=== PATIENT | male | born 1955 | race Asian ===

== ENCOUNTER → 2016-05-27 | Outpatient (CLI) | payer BC ==
[~2016-05-27] MED LIST: CHOL100026 PO; MULT-1146 PO
[2016-05-27 12:32] LABS: BASOPHILS % 0.7 % (0.0-2.0); HEMATOCRIT. 39.6 % (42.0-52.0); HEMOGLOBIN. 13.1 g/dL (14.0-18.0); LYMPHOCYTES % 38.6 % (20.0-50.0); MEAN CORPUSCULAR HEMOGLOBIN 31.5 pg (28.0-32.0); MEAN CORPUSCULAR HGB CONC 33.2 g/dL (31.0-37.0); NEUTROPHILS % 49.7 % (40.0-76.0); PLATELET 207 x1000/uL (130-400); RED BLOOD CELL COUNT 4.17 mill/uL (4.7-6.1); RED CELL DISTRIBUTION WIDTH 14.8 % (11.6-14.6); WHITE BLOOD COUNT 6.4 x1000/uL (4.5-11.0)
[2016-05-27 18:38] LABS: CHLORIDE 107 mEq/L (98-107); INDEX HEMOLYSI 1 (1-3); INDEX ICTERIC 1 (1-4); INDEX LIPEMIC 1 (1-3)
[2016-05-27 18:52] LABS: ALANINE AMINOTRANSFERASE 22 IU/L (13-61); ALBUMIN 3.8 g/dL (3.4-5.0); ANION GAP 12; CARBON DIOXIDE 26 mEq/L (21-32); HDL CHOLESTEROL 53 mg/dL (40-59); LDL CHOLESTEROL 146 mg/dL (5-100); T4 FREE 0.97 ng/dL (0.76-1.46); TRIGLYCERIDE 94 mg/dL (0-150); UREA NITROGEN BLOOD 15 mg/dL (7-21); eGFR > 60 mL/min (>60)
== END | disposition home or self-care (01) ==
LOC: LAB 11:51
PROVIDERS: ATTEND Internal Medicine Endocrinology, Diabetes & Metabolism
DX: R73.9 Hyperglycemia, unspecified (principal); E04.1 Nontoxic single thyroid nodule; E78.00 Pure hypercholesterolemia, unspecified
CPT/HCPCS: 36415; 80053; 80061; 83036; 84439; 84443; 85025

== ENCOUNTER → 2016-09-14 | Outpatient (CLI) | payer BC ==
[~2016-09-14] MED LIST changes: +ASCO-316 PO; -CHOL100026 PO; +CHOL100044 PO; +FISH PO; +VITA1TAB18 PO
[2016-09-14 09:48] LABS: BASOPHILS % 0.5 % (0.0-2.0); EOSINOPHILS % 2.1 % (0.0-5.0); HEMOGLOBIN. 14.9 g/dL (14.0-18.0); MEAN CORPUSCULAR HEMOGLOBIN 32.3 pg (28.0-32.0); MEAN CORPUSCULAR VOLUME 93.3 fL (80.0-94.0); MEAN PLATELET VOLUME 7.5 fl (7.4-10.4); MONOCYTES % 4.9 % (2.0-8.0); NEUTROPHILS % 56.5 % (40.0-76.0); PLATELET 218 x1000/uL (130-400); RED CELL DISTRIBUTION WIDTH 14.5 % (11.6-14.6)
[2016-09-14 10:28] LABS: CARBON DIOXIDE 28 mEq/L (21-32); CHLORIDE 105 mEq/L (98-107); HDL CHOLESTEROL 37 mg/dL (40-59); LDL CHOLESTEROL 134 mg/dL (5-100); T4 FREE 1.08 ng/dL (0.76-1.46)
== END | disposition home or self-care (01) ==
LOC: LAB 09:11
PROVIDERS: ATTEND Internal Medicine Endocrinology, Diabetes & Metabolism
DX: E78.00 Pure hypercholesterolemia, unspecified (principal); D64.9 Anemia, unspecified; E55.9 Vitamin D deficiency, unspecified; R73.9 Hyperglycemia, unspecified
CPT/HCPCS: 36415; 80053; 80061; 82306; 83036; 84439; 84443; 85025

== ENCOUNTER → 2016-10-07 | Outpatient (CLI) | payer BC ==
[~2016-10-07] MED LIST changes: -ASCO-316 PO; +CHOL100026 PO; -CHOL100044 PO; -FISH PO; -VITA1TAB18 PO
[2016-10-07 11:49] LABS: BASOPHILS % 0.7 % (0.0-2.0); EOSINOPHILS % 3.9 % (0.0-5.0); HEMATOCRIT. 39.8 % (42.0-52.0); HEMOGLOBIN. 13.6 g/dL (14.0-18.0); LYMPHOCYTES % 43.7 % (20.0-50.0); MEAN CORPUSCULAR HEMOGLOBIN 32.3 pg (28.0-32.0); MEAN CORPUSCULAR VOLUME 94.7 fL (80.0-94.0); MEAN PLATELET VOLUME 8.1 fl (7.4-10.4); MONOCYTES % 6.7 % (2.0-8.0); PLATELET 175 x1000/uL (130-400); RED CELL DISTRIBUTION WIDTH 14.8 % (11.6-14.6)
[2016-10-07 12:12] LABS: CARBON DIOXIDE 28 mEq/L (21-32); CHLORIDE 108 mEq/L (98-107); HDL CHOLESTEROL 44 mg/dL (40-59); LDL CHOLESTEROL 126 mg/dL (5-100); T4 FREE 1.01 ng/dL (0.76-1.46)
[2016-10-07 12:25] LABS: CLARITY URINE CLEAR (CLEAR); COLOR URINE YELLOW (YELLOW); GLUCOSE URINE NEGATIVE (NEGATIVE); KETONES URINE NEGATIVE (NEGATIVE); LEUKOCYTE ESTERASE URINE NEGATIVE (NEGATIVE); NITRITE URINE NEGATIVE (NEGATIVE); OCCULT BLOOD URINE 1+ (NEGATIVE); PH URINE 6.5 (4.5-8.0); PROTEIN URINE NEGATIVE (NEGATIVE); SPECIFIC GRAVITY URINE 1.024 (1.005-1.030)
[2016-10-07 12:30] LABS: PARTIAL THROMBOPLASTIN TIME 27.5 sec (24.0-34.0); PROTHROMBIN TIME 10.2 sec
== END | disposition home or self-care (01) ==
LOC: LAB 11:28
PROVIDERS: ATTEND Internal Medicine Endocrinology, Diabetes & Metabolism
DX: Z01.811 Encounter for preprocedural respiratory examination (principal); E04.1 Nontoxic single thyroid nodule; E78.00 Pure hypercholesterolemia, unspecified; R73.9 Hyperglycemia, unspecified
CPT/HCPCS: 36415; 71020; 80053; 80061; 81001; 83036; 84439; 84443; 85025; 85610; 85730

== ENCOUNTER 2016-11-11 05:20 | Inpatient (IN) | payer BC ==
[~2016-11-11] VITALS: Ht 175.3 cm; Wt 79.4 kg
[~2016-11-11 05:20] MED LIST changes: -CHOL100026 PO; +CHOL100044 PO
[2016-11-11 06:25] LABS: BASOPHILS % 0.5 % (0.0-2.0); EOSINOPHILS % 4.3 % (0.0-5.0); HEMATOCRIT. 38.6 % (42.0-52.0); HEMOGLOBIN. 13.1 g/dL (14.0-18.0); MEAN CORPUSCULAR HEMOGLOBIN 33.1 pg (28.0-32.0); MEAN CORPUSCULAR VOLUME 97.5 fL (80.0-94.0); MEAN PLATELET VOLUME 8.3 fl (7.4-10.4); MONOCYTES % 7.7 % (2.0-8.0); NEUTROPHILS % 47.5 % (40.0-76.0); PLATELET 156 x1000/uL (130-400); RED BLOOD CELL COUNT 3.96 mill/uL (4.7-6.1); RED CELL DISTRIBUTION WIDTH 14.7 % (11.6-14.6)
[2016-11-11 06:25] LABS: CLARITY URINE CLEAR (CLEAR); COLOR URINE YELLOW (YELLOW); GLUCOSE URINE NEGATIVE (NEGATIVE); KETONES URINE TRACE (NEGATIVE); LEUKOCYTE ESTERASE URINE NEGATIVE (NEGATIVE); NITRITE URINE NEGATIVE (NEGATIVE); OCCULT BLOOD URINE 1+ (NEGATIVE); PROTEIN URINE NEGATIVE (NEGATIVE); SPECIFIC GRAVITY URINE 1.023 (1.005-1.030)
[2016-11-11 06:32] LABS: PARTIAL THROMBOPLASTIN TIME 26.6 sec (23.4-31.0); PROTHROMBIN TIME 10.2 sec (9.4-11.6)
[2016-11-11] MEDS ORDERED: LACTATED RINGERS 1,000 ML IV SCH (06:40)
[2016-11-11 06:46] LABS: CARBON DIOXIDE 30 mEq/L (21-32); CHLORIDE 108 mEq/L (98-107)
[2016-11-11] MEDS ORDERED: TRANEXAMIC ACID 1,000 MG in SODIUM CHLORIDE 0.9% 100 ML IV NR (07:00)
[2016-11-11] MEDS ORDERED: METHYLENE BLUE 50 MG/10 ML AMP IV NR (07:01)
[2016-11-11] MEDS ORDERED: EPINEPHRINE 1:1000 1 MG/ML AMP ONE (07:07)
[2016-11-11] MEDS ORDERED: MORPHINE SULFATE/PF 1MG/ML 10ML AMP ONE (07:07)
[2016-11-11] MEDS ORDERED: BUPIVACAINE/EPINEPH/PF 0.25%/0.0005 10ML ONE (07:08)
[2016-11-11] MEDS ORDERED: NORMAL SALINE 0.9% 10 ML SYR ONE (07:08)
[2016-11-11] MEDS ORDERED: BACITRACIN 50,000 UNITS/VIAL ONE (07:08)
[2016-11-11] MEDS ORDERED: METHYLENE BLUE 1% VIAL 1ML INJ ONE (07:15)
[2016-11-11] MEDS ORDERED: GENTAMICIN SULF 40MG/ML 2ML VIAL ONE (07:46)
[2016-11-11] MEDS ORDERED: DEXAMETHASONE 4MG/ML 1ML VIAL ONE ×2 (07:54→10:37)
[2016-11-11] MEDS ORDERED: CEFAZOLIN SODIUM 1000MG/VIAL ONE ×2 (07:54→10:36)
[2016-11-11] MEDS ORDERED: MEPERIDINE HCL/PF 25MG/ML CPJ IV PRN (09:30)
[2016-11-11] MEDS ORDERED: LABETALOL HCL 20MG/4ML CARPUJECT IV PRN (09:30)
[2016-11-11] MEDS ORDERED: ONDANSETRON HCL 4MG/2ML VIAL IV PRN ×2 (09:30→11:00)
[2016-11-11] MEDS ORDERED: ASCO-316 PO (10:07)
[2016-11-11] MEDS ORDERED: VITA1TAB18 PO (10:07)
[2016-11-11] MEDS ORDERED: FISH PO (10:07)
[2016-11-11] MEDS ORDERED: LABETALOL HCL 5MG/ML VIAL 20ML IV ONE (10:36)
[2016-11-11] MEDS ORDERED: HYDROCODONE/ACETAMINOPHEN 10/325MG TABLET PO PRN (11:00)
[2016-11-11] MEDS ORDERED: TRAMADOL 50MG TABLET PO ONE (11:00)
[2016-11-11] MEDS ORDERED: ACETAMINOPHEN 325MG TABLET PO PRN (11:00)
[2016-11-11] MEDS ORDERED: MAGNESIUM HYDROXIDE 400MG/5ML 30ML UDC PO PRN (11:00)
[2016-11-11] MEDS ORDERED: TRAMADOL 50MG TABLET PO PRN (11:00)
[2016-11-11] MEDS: HYDROMORPHONE HCL/PF 2MG/ML CPJ IV PRN ×3 (11:29→14:11)
[2016-11-11] MEDS ORDERED: HYDROMORPHONE PCA 10MG/50ML IV PRN (11:30)
[2016-11-11] MEDS ORDERED: ONDANSETRON INJ IV PRN (11:30)
[2016-11-11] MEDS ORDERED: NALOXONE INJ IV PRN (11:30)
[2016-11-11] MEDS ORDERED: DIPHENHYDRAMINE INJ IV PRN (11:30)
[2016-11-11 18:00] VITALS: BP 107/72
[2016-11-11 18:06] VITALS: BP 107/72
[2016-11-11] MEDS: DOCUSATE SODIUM 100MG CAPSULE PO SCH (18:39)
[2016-11-11] MEDS: CELECOXIB 200MG CAPSULE PO SCH (18:39)
[2016-11-11] MEDS: FERROUS SULFATE 325MG TABLET PO SCH (18:39)
[2016-11-11 20:00] VITALS: BP 105/60
[2016-11-11] MEDS ORDERED: ZOLPIDEM TARTRATE 5MG TABLET PO PRN (21:00)
[2016-11-11] MEDS: CEFAZOLIN 2,000 MG in DEXT 5% WATER 100 ML IV SCH (22:14)
[2016-11-11] MEDS: ENOXAPARIN 40MG/0.4ML SYR SUBCUT SCH (22:14)
[2016-11-12] VITALS: BP 122/66
[2016-11-12 04:00] VITALS: BP 101/56
[2016-11-12] MEDS: CEFAZOLIN 2,000 MG in DEXT 5% WATER 100 ML IV SCH (04:45)
[2016-11-12 07:06] LABS: BASOPHILS % 0.2 % (0.0-2.0); EOSINOPHILS % 0.1 % (0.0-5.0); HEMOGLOBIN. 10.9 g/dL (14.0-18.0); LYMPHOCYTES % 23.8 % (20.0-50.0); MEAN CORPUSCULAR HEMOGLOBIN 33.3 pg (28.0-32.0); MEAN CORPUSCULAR VOLUME 98.3 fL (80.0-94.0); MEAN PLATELET VOLUME 8.8 fl (7.4-10.4); MONOCYTES % 11.1 % (2.0-8.0); NEUTROPHILS % 64.8 % (40.0-76.0); PLATELET 147 x1000/uL (130-400); RED BLOOD CELL COUNT 3.26 mill/uL (4.7-6.1); RED CELL DISTRIBUTION WIDTH 14.8 % (11.6-14.6)
[2016-11-12 07:42] LABS: CARBON DIOXIDE 30 mEq/L (21-32); CHLORIDE 105 mEq/L (98-107)
[2016-11-12 08:00] VITALS: BP 110/67
[2016-11-12] MEDS: DOCUSATE SODIUM 100MG CAPSULE PO SCH ×2 (09:50→17:34)
[2016-11-12] MEDS: FERROUS SULFATE 325MG TABLET PO SCH ×3 (09:50→17:34)
[2016-11-12] MEDS: CELECOXIB 200MG CAPSULE PO SCH ×2 (09:50→17:34)
[2016-11-12 12:00] VITALS: BP 113/74
[2016-11-12 16:00] VITALS: BP 108/66
[2016-11-12 20:00] VITALS: BP 96/45
[2016-11-12] MEDS: ENOXAPARIN 40MG/0.4ML SYR SUBCUT SCH (21:26)
[2016-11-12] MEDS: HYDROCODONE/ACETAMINOPHEN 10/325MG TABLET PO PRN (21:41)
[2016-11-13] VITALS: BP 121/62
[2016-11-13] MEDS: HYDROCODONE/ACETAMINOPHEN 10/325MG TABLET PO PRN ×2 (02:36→08:38)
[2016-11-13 04:00] VITALS: BP 116/56
[2016-11-13 07:02] LABS: BASOPHILS % 0.4 % (0.0-2.0); EOSINOPHILS % 2.3 % (0.0-5.0); HEMATOCRIT. 30.3 % (42.0-52.0); HEMOGLOBIN. 10.4 g/dL (14.0-18.0); MEAN CORPUSCULAR HEMOGLOBIN 33.5 pg (28.0-32.0); MEAN CORPUSCULAR VOLUME 97.8 fL (80.0-94.0); MONOCYTES % 11.4 % (2.0-8.0); NEUTROPHILS % 62.9 % (40.0-76.0); PLATELET 129 x1000/uL (130-400); RED CELL DISTRIBUTION WIDTH 14.3 % (11.6-14.6)
[2016-11-13 08:00] VITALS: BP 105/66
[2016-11-13] MEDS: CELECOXIB 200MG CAPSULE PO SCH (08:39)
[2016-11-13] MEDS: FERROUS SULFATE 325MG TABLET PO SCH (08:39)
[2016-11-13] MEDS: DOCUSATE SODIUM 100MG CAPSULE PO SCH (08:39)
[2016-11-13 12:00] VITALS: BP 103/71
[2016-11-13 13:00] VITALS: BP 103/71
== END 2016-11-13 13:15 | disposition home or self-care (01) | DRG 470 ==
LOC: OR 05:20 → 6EST 05:21
PROVIDERS: ADMIT Orthopaedic Surgery; ATTEND Orthopaedic Surgery
PROC: 0SRD0J9 Replacement of Left Knee Joint with Synthetic Substitute, Cemented, Open Approach (ICD-10-PCS; principal; 2016-11-11 07:30)
DX: M17.12 Unilateral primary osteoarthritis, left knee (principal); E04.2 Nontoxic multinodular goiter; E78.5 Hyperlipidemia, unspecified; E78.00 Pure hypercholesterolemia, unspecified; Z96.651 Presence of right artificial knee joint; R73.9 Hyperglycemia, unspecified; Z80.9 Family history of malignant neoplasm, unspecified
CPT/HCPCS: 36415; 73560; 80048; 81001; 85025; 85610; 85730; 86850; 86900; 86920; 88305; 88311; 93970; 97116; 97162; 97166; 97530; 97535; A4216; C1776; J0171; J0690; J1100; J1170; J1580; J1650; J2175; J2274; J2405; J3490; J7040; J7050; J7060; J7120; L1830; Q9968

== ENCOUNTER → 2016-12-20 | Outpatient (CLI) | payer BC ==
[~2016-12-20] MED LIST changes: +ASCO-316 PO; +FISH PO; +VITA1TAB18 PO
[2016-12-20 10:17] LABS: BASOPHILS % 0.5 % (0.0-2.0); HEMATOCRIT. 36.3 % (42.0-52.0); HEMOGLOBIN. 12.1 g/dL (14.0-18.0); LYMPHOCYTES % 28.6 % (20.0-50.0); MEAN CORPUSCULAR HEMOGLOBIN 31.5 pg (28.0-32.0); MEAN CORPUSCULAR VOLUME 94.9 fL (80.0-94.0); MEAN PLATELET VOLUME 7.4 fl (7.4-10.4); MONOCYTES % 5.3 % (2.0-8.0); NEUTROPHILS % 63.6 % (40.0-76.0); PLATELET 219 x1000/uL (130-400); RED BLOOD CELL COUNT 3.83 mill/uL (4.7-6.1); RED CELL DISTRIBUTION WIDTH 14.9 % (11.6-14.6)
[2016-12-20 10:57] LABS: CARBON DIOXIDE 29 mEq/L (21-32); CHLORIDE 108 mEq/L (98-107); HDL CHOLESTEROL 52 mg/dL (40-59); LDL CHOLESTEROL 118 mg/dL (5-100)
== END | disposition home or self-care (01) ==
LOC: LAB 09:49
PROVIDERS: ATTEND Internal Medicine Endocrinology, Diabetes & Metabolism
DX: E78.00 Pure hypercholesterolemia, unspecified (principal); R73.9 Hyperglycemia, unspecified; E04.1 Nontoxic single thyroid nodule
CPT/HCPCS: 36415; 80053; 80061; 83036; 84439; 84443; 85025

== ENCOUNTER → 2017-04-08 | Outpatient (CLI) | payer BC ==
[2017-04-08 10:43] LABS: BASOPHILS % 0.7 % (0.0-2.0); EOSINOPHILS % 2.8 % (0.0-5.0); HEMATOCRIT. 41.3 % (42.0-52.0); HEMOGLOBIN. 14.1 g/dL (14.0-18.0); LYMPHOCYTES % 40.1 % (20.0-50.0); MEAN CORPUSCULAR HEMOGLOBIN 32.2 pg (28.0-32.0); MEAN CORPUSCULAR VOLUME 94.6 fL (80.0-94.0); MEAN PLATELET VOLUME 8.1 fl (7.4-10.4); MONOCYTES % 6.8 % (2.0-8.0); NEUTROPHILS % 49.6 % (40.0-76.0); PLATELET 206 x1000/uL (130-400); RED BLOOD CELL COUNT 4.37 mill/uL (4.7-6.1); RED CELL DISTRIBUTION WIDTH 15.6 % (11.6-14.6)
[2017-04-08 11:38] LABS: CHLORIDE 108 mEq/L (98-107); T4 FREE 0.92 ng/dL (0.76-1.46)
[2017-04-08 11:46] LABS: HDL CHOLESTEROL 62 mg/dL (40-59); LDL CHOLESTEROL 120 mg/dL (5-100)
== END | disposition home or self-care (01) ==
LOC: LAB 10:16
PROVIDERS: ATTEND Internal Medicine Endocrinology, Diabetes & Metabolism
DX: E04.1 Nontoxic single thyroid nodule (principal); E78.00 Pure hypercholesterolemia, unspecified; R73.9 Hyperglycemia, unspecified
CPT/HCPCS: 36415; 80061; 83036; 84439; 84443

== ENCOUNTER → 2017-07-02 | Outpatient (CLI) | payer BC ==
[2017-07-02 11:29] LABS: BASOPHILS % 0.5 % (0.0-2.0); EOSINOPHILS % 3.4 % (0.0-5.0); HEMATOCRIT. 43.1 % (42.0-52.0); MEAN CORPUSCULAR HEMOGLOBIN 33.9 pg (28.0-32.0); MEAN CORPUSCULAR VOLUME 97.1 fL (80.0-94.0); MEAN PLATELET VOLUME 7.8 fl (7.4-10.4); MONOCYTES % 4.6 % (2.0-8.0); NEUTROPHILS % 51.5 % (40.0-76.0); PLATELET 196 x1000/uL (130-400); RED BLOOD CELL COUNT 4.44 mill/uL (4.7-6.1); RED CELL DISTRIBUTION WIDTH 13.2 % (11.6-14.6)
[2017-07-02 12:05] LABS: CHLORIDE 107 mEq/L (98-107)
[2017-07-02 12:13] LABS: HDL CHOLESTEROL 58 mg/dL (40-59)
[2017-07-02 12:14] LABS: LDL CHOLESTEROL 125 mg/dL (5-100)
[2017-07-02 12:16] LABS: T4 FREE 0.89 ng/dL (0.76-1.46)
== END | disposition home or self-care (01) ==
LOC: LAB 11:08
PROVIDERS: ATTEND Internal Medicine Endocrinology, Diabetes & Metabolism
DX: Z12.5 Encounter for screening for malignant neoplasm of prostate (principal); I10 Essential (primary) hypertension; E78.5 Hyperlipidemia, unspecified; E04.1 Nontoxic single thyroid nodule; R79.89 Other specified abnormal findings of blood chemistry
CPT/HCPCS: 36415; 80053; 80061; 83036; 84153; 84439; 84443; 85025

== ENCOUNTER → 2017-10-05 | Outpatient (CLI) | payer BC ==
[2017-10-05 09:26] LABS: BASOPHILS % 0.9 % (0.0-2.0); EOSINOPHILS % 3.6 % (0.0-5.0); HEMATOCRIT. 41.8 % (42.0-52.0); HEMOGLOBIN. 14.3 g/dL (14.0-18.0); LYMPHOCYTES % 41.7 % (20.0-50.0); MEAN CORPUSCULAR HEMOGLOBIN 33.5 pg (28.0-32.0); MEAN CORPUSCULAR VOLUME 97.9 fL (80.0-94.0); MEAN PLATELET VOLUME 8.3 fl (7.4-10.4); MONOCYTES % 5.9 % (2.0-8.0); NEUTROPHILS % 47.9 % (40.0-76.0); PLATELET 177 x1000/uL (130-400); RED BLOOD CELL COUNT 4.27 mill/uL (4.7-6.1); RED CELL DISTRIBUTION WIDTH 13.8 % (11.6-14.6)
[2017-10-05 09:51] LABS: CHLORIDE 108 mEq/L (98-107)
[2017-10-05 09:58] LABS: LDL CHOLESTEROL 119 mg/dL (5-100)
[2017-10-05 10:00] LABS: T4 FREE 0.98 ng/dL (0.76-1.46)
[2017-10-05 10:03] LABS: HDL CHOLESTEROL 56 mg/dL (40-59)
[2017-10-06 13:07] LABS: VITAMIN D 25-OH 38.6 ng/mL (30.0-100.0)
== END | disposition home or self-care (01) ==
LOC: LAB 08:52
PROVIDERS: ATTEND Internal Medicine Endocrinology, Diabetes & Metabolism
DX: I10 Essential (primary) hypertension (principal); E78.5 Hyperlipidemia, unspecified; R73.9 Hyperglycemia, unspecified; E04.1 Nontoxic single thyroid nodule; E78.00 Pure hypercholesterolemia, unspecified; Z79.899 Other long term (current) drug therapy
CPT/HCPCS: 36415; 80053; 80061; 82306; 83036; 84439; 84443; 85025; 86800

== ENCOUNTER → 2018-01-04 | Outpatient (CLI) | payer BC ==
[2018-01-04 13:03] LABS: BASOPHILS % 0.6 % (0.0-2.0); HEMATOCRIT. 43.3 % (42.0-52.0); HEMOGLOBIN. 14.8 g/dL (14.0-18.0); LYMPHOCYTES % 30.6 % (20.0-50.0); MEAN CORPUSCULAR HEMOGLOBIN 33.7 pg (28.0-32.0); MEAN CORPUSCULAR VOLUME 98.5 fL (80.0-94.0); MEAN PLATELET VOLUME 8.2 fl (7.4-10.4); MONOCYTES % 5.3 % (2.0-8.0); NEUTROPHILS % 62.5 % (40.0-76.0); PLATELET 192 x1000/uL (130-400); RED BLOOD CELL COUNT 4.39 mill/uL (4.7-6.1); RED CELL DISTRIBUTION WIDTH 13.3 % (11.6-14.6)
[2018-01-04 13:04] LABS: CHLORIDE 106 mEq/L (98-107)
[2018-01-04 13:20] LABS: HDL CHOLESTEROL 63 mg/dL (40-59); LDL CHOLESTEROL 138 mg/dL (5-100); T4 FREE 1.01 ng/dL (0.76-1.46)
[2018-01-05 09:06] LABS: VITAMIN D 25-OH 37.2 ng/mL (30.0-100.0)
== END | disposition home or self-care (01) ==
LOC: LAB 11:41
PROVIDERS: ATTEND Internal Medicine Endocrinology, Diabetes & Metabolism
DX: I10 Essential (primary) hypertension (principal); E78.5 Hyperlipidemia, unspecified; E55.9 Vitamin D deficiency, unspecified; E04.1 Nontoxic single thyroid nodule
CPT/HCPCS: 36415; 80061; 82306; 83036; 84439; 84443; 86800

== ENCOUNTER → 2018-02-17 | Outpatient (CLI) | payer BC | END | disposition home or self-care (01) | LOC: RAD 14:17 | PROVIDERS: ATTEND Podiatrist Foot & Ankle Surgery | DX: M20.11 Hallux valgus (acquired), right foot (principal) | CPT/HCPCS: 73630 ==

== ENCOUNTER → 2018-03-24 | Outpatient (CLI) | payer BC ==
[2018-03-24 11:40] LABS: BASOPHILS % 0.8 % (0.0-2.0); EOSINOPHILS % 1.8 % (0.0-5.0); HEMATOCRIT. 44.3 % (42.0-52.0); LYMPHOCYTES % 34.4 % (20.0-50.0); MEAN CORPUSCULAR VOLUME 97.5 fL (80.0-94.0); MONOCYTES % 4.5 % (2.0-8.0); NEUTROPHILS % 58.5 % (40.0-76.0); PLATELET 175 x1000/uL (130-400); RED BLOOD CELL COUNT 4.54 mill/uL (4.7-6.1); RED CELL DISTRIBUTION WIDTH 12.8 % (11.6-14.6)
[2018-03-24 11:53] LABS: CHLORIDE 108 mEq/L (98-107)
[2018-03-24 12:00] LABS: LDL CHOLESTEROL 132 mg/dL (5-100)
[2018-03-24 12:01] LABS: HDL CHOLESTEROL 59 mg/dL (40-59); T4 FREE 0.96 ng/dL (0.76-1.46)
[2018-03-24 12:45] LABS: VITAMIN B12 SERUM 393 pg/mL (211-911)
[2018-03-25 09:06] LABS: VITAMIN D 25-OH 31.7 ng/mL (30.0-100.0)
[2018-03-26 04:17] LABS: ANTI-NUCLEAR ANTIBODIES DIRECT Negative (Negative)
== END | disposition home or self-care (01) ==
LOC: LAB 11:13
PROVIDERS: ATTEND Internal Medicine Endocrinology, Diabetes & Metabolism
DX: I10 Essential (primary) hypertension (principal); E04.1 Nontoxic single thyroid nodule; M19.90 Unspecified osteoarthritis, unspecified site; E55.9 Vitamin D deficiency, unspecified
CPT/HCPCS: 36415; 80061; 82306; 82607; 83036; 84439; 84443; 84550; 85651; 86038; 86800

== ENCOUNTER 2018-06-02 11:12 | Inpatient (IN) | payer BC ==
[~2018-06-02] VITALS: Ht 175.3 cm; Wt 72.6 kg
[2018-06-02 12:14] LABS: CLARITY URINE SL HAZY (CLEAR); COLOR URINE YELLOW (YELLOW); KETONES URINE TRACE (NEGATIVE); LEUKOCYTE ESTERASE URINE NEGATIVE (NEGATIVE); NITRITE URINE NEGATIVE (NEGATIVE); OCCULT BLOOD URINE TRACE (NEGATIVE); PROTEIN URINE NEGATIVE (NEGATIVE); SPECIFIC GRAVITY URINE 1.013 (1.005-1.030)
[2018-06-02] MEDS ORDERED: SODIUM CHLORIDE 0.9% 1,000 ML IV ONE (16:39)
[2018-06-02] MEDS ORDERED: FAMOTIDINE 20MG/2ML VIAL IV STA (16:39)
[2018-06-02] MEDS ORDERED: MAGNESIUM/ALUMINUM HYDROXIDE/SIMETHICONE 30ML UDC PO STA (16:39)
[2018-06-02 16:56] LABS: BASOPHILS % 0.5 % (0.0-2.0); EOSINOPHILS % 0.7 % (0.0-5.0); HEMATOCRIT. 46.6 % (42.0-52.0); LYMPHOCYTES % 31.9 % (20.0-50.0); MEAN CORPUSCULAR HEMOGLOBIN 33.6 pg (28.0-32.0); MEAN PLATELET VOLUME 8.2 fl (7.4-10.4); MONOCYTES % 5.9 % (2.0-8.0); PLATELET 209 x1000/uL (130-400); RED BLOOD CELL COUNT 4.75 mill/uL (4.7-6.1); RED CELL DISTRIBUTION WIDTH 13.5 % (11.6-14.6)
[2018-06-02 17:01] LABS: CHLORIDE 102 mEq/L (98-107)
[2018-06-02 17:05] LABS: PROTHROMBIN TIME 10.4 sec (9.1-11.1)
[2018-06-02] MEDS ORDERED: ASPIRIN 81MG TABLET PO ONE (19:00)
[2018-06-02] MEDS ORDERED: HYDROMORPHONE HCL/PF 2MG/ML CPJ IV PRN (22:15)
[2018-06-02] MEDS ORDERED: ACETAMINOPHEN 650MG/20.3ML UDC PO PRN (22:15)
[2018-06-03 04:00] VITALS: BP 123/78
[2018-06-03 04:08] VITALS: BP 123/78
[2018-06-03] MEDS: FAMOTIDINE 20MG/2ML VIAL IV SCH ×2 (07:58→21:05)
[2018-06-03] MEDS: ASPIRIN 325MG EC TABLET PO SCH (07:59)
[2018-06-03 08:00] VITALS: BP 139/87
[2018-06-03 11:11] LABS: HEMATOCRIT. 44.7 % (42.0-52.0); HEMOGLOBIN. 15.2 g/dL (14.0-18.0); MEAN CORPUSCULAR HEMOGLOBIN 33.2 pg (28.0-32.0); MEAN CORPUSCULAR VOLUME 97.5 fL (80.0-94.0); PLATELET 202 x1000/uL (130-400); RED BLOOD CELL COUNT 4.58 mill/uL (4.7-6.1); RED CELL DISTRIBUTION WIDTH 13.5 % (11.6-14.6)
[2018-06-03 11:19] LABS: CHLORIDE 103 mEq/L (98-107)
[2018-06-03 12:00] VITALS: BP 133/81
[2018-06-03] MEDS ORDERED: POTASSIUM CHLORIDE 20MEQ TABLET SR PO NR (12:30)
[2018-06-03 13:00] LABS: PLATELET ESTIMATE NORMAL
[2018-06-03] MEDS ORDERED: REGADENOSON 0.4 MG/5 ML IV NR (15:15)
[2018-06-03] MEDS ORDERED: CLONIDINE 0.1MG TABLET PO PRN (15:15)
[2018-06-03] MEDS ORDERED: POTASSIUM CHLORIDE 20MEQ/PACKET PO NR (15:15)
[2018-06-03 16:00] VITALS: BP 130/86
[2018-06-03 20:00] VITALS: BP 107/73
[2018-06-04] VITALS: BP 128/77
[2018-06-04 01:47] LABS: *AMPHETAMINES SCREEN URINE NEGATIVE (NEGATIVE); *BARBITURATES SCREEN URINE NEGATIVE (NEGATIVE); *BENZODIAZEPINES SCREEN URINE NEGATIVE (NEGATIVE); *COCAINE SCREEN URINE NEGATIVE (NEGATIVE); METHADONE URINE SCREEN NEGATIVE (NEGATIVE); OPIATES URINE SCREEN NEGATIVE (NEGATIVE)
[2018-06-04 01:49] LABS: CANNABINOID URINE SCREEN NEGATIVE (NEGATIVE); PHENCYCLIDINE URINE SCREEN NEGATIVE (NEGATIVE)
[2018-06-04 04:00] VITALS: BP 118/67
[2018-06-04 06:49] LABS: BASOPHILS % 0.8 % (0.0-2.0); EOSINOPHILS % 1.9 % (0.0-5.0); HEMATOCRIT. 42.5 % (42.0-52.0); HEMOGLOBIN. 14.5 g/dL (14.0-18.0); MEAN CORPUSCULAR HEMOGLOBIN 33.2 pg (28.0-32.0); MEAN CORPUSCULAR VOLUME 97.1 fL (80.0-94.0); MEAN PLATELET VOLUME 8.5 fl (7.4-10.4); NEUTROPHILS % 62.3 % (40.0-76.0); PLATELET 193 x1000/uL (130-400); RED BLOOD CELL COUNT 4.38 mill/uL (4.7-6.1); RED CELL DISTRIBUTION WIDTH 13.3 % (11.6-14.6)
[2018-06-04 06:56] LABS: CHLORIDE 106 mEq/L (98-107)
[2018-06-04 07:21] LABS: CREATINE KINASE MB FRACTION < 1.0 ng/mL (0.5-3.6); LDL CHOLESTEROL 130 mg/dL (5-100)
[2018-06-04 07:22] LABS: C REACTIVE PROTEIN CARDIAC < 0.20 mg/L (0.00-3.00); HDL CHOLESTEROL 52 mg/dL (40-59)
[2018-06-04 07:25] LABS: CREATINE KINASE 42 IU/L (39-308)
[2018-06-04 07:33] LABS: VITAMIN B12 SERUM 468 pg/mL (211-911)
[2018-06-04 08:00] VITALS: BP 107/77
[2018-06-04] MEDS: ASPIRIN 325MG EC TABLET PO SCH (08:23)
[2018-06-04] MEDS: FAMOTIDINE 20MG/2ML VIAL IV SCH (08:23)
[2018-06-04] MEDS ORDERED: REGADENOSON 0.4 MG/5 ML IV ONE (09:12)
[2018-06-04 12:00] VITALS: BP 125/82
[2018-06-04 15:10] VITALS: BP 125/82
[2018-06-07 15:06] LABS: A/G RATIO 1.4 (0.7-1.7); ALBUMIN 3.8 g/dL (2.9-4.4); ALPHA-1-GLOBULIN 0.1 g/dL (0.0-0.4); ALPHA-2-GLOBULIN 0.4 g/dL (0.4-1.0); GAMMA GLOBULINS 1.2 g/dL (0.4-1.8); GLOBULIN TOTAL 2.8 g/dL (2.2-3.9); M-SPIKE Not Observed g/dL (Not Observed); TOTAL PROTEIN SERUM 6.6 g/dL (6.0-8.5)
== END 2018-06-04 15:50 | disposition home or self-care (01) | DRG 392 ==
LOC: ER 11:12 → 8WST 18:58 → EDBEDREQ 19:01 → ENRESERV 06-03 03:07
PROVIDERS: ADMIT Internal Medicine Endocrinology, Diabetes & Metabolism; ATTEND Internal Medicine Endocrinology, Diabetes & Metabolism
DX: K52.9 Noninfective gastroenteritis and colitis, unspecified (principal); I42.9 Cardiomyopathy, unspecified; D72.821 Monocytosis (symptomatic); D75.89 Other specified diseases of blood and blood-forming organs; E04.2 Nontoxic multinodular goiter; E78.00 Pure hypercholesterolemia, unspecified; E87.6 Hypokalemia; R73.9 Hyperglycemia, unspecified; R00.1 Bradycardia, unspecified; I10 Essential (primary) hypertension; M17.0 Bilateral primary osteoarthritis of knee; Z96.653 Presence of artificial knee joint, bilateral; R31.29 Other microscopic hematuria; Z80.0 Family history of malignant neoplasm of digestive organs; Z79.899 Other long term (current) drug therapy; Z84.1 Family history of disorders of kidney and ureter
CPT/HCPCS: 36415; 74176; 78452; 80048; 80061; 80305; 82550; 82553; 82607; 83036; 83735; 83880; 84155; 84165; 84443; 84484; 85007; 85027; 85379; 85651; 86141; 93005; 93017; 93306; 96361; 96374; 99285; A9500; J2785; J3490; J7030

== ENCOUNTER → 2018-07-27 | Outpatient (CLI) | payer BC | END | disposition home or self-care (01) | LOC: CARD 08:03 | PROVIDERS: ATTEND Specialist | DX: I42.9 Cardiomyopathy, unspecified (principal) | CPT/HCPCS: 93306 ==

== ENCOUNTER → 2018-10-14 | Outpatient (CLI) | payer BC ==
[2018-10-14 09:55] LABS: BASOPHILS % 0.7 % (0.0-2.0); EOSINOPHILS % 1.7 % (0.0-5.0); HEMOGLOBIN. 13.8 g/dL (14.0-18.0); LYMPHOCYTES % 45.8 % (20.0-50.0); MEAN CORPUSCULAR HEMOGLOBIN 33.5 pg (28.0-32.0); MEAN CORPUSCULAR VOLUME 97.1 fL (80.0-94.0); MONOCYTES % 5.7 % (2.0-8.0); NEUTROPHILS % 46.1 % (40.0-76.0); PLATELET 157 x1000/uL (130-400); RED BLOOD CELL COUNT 4.12 mill/uL (4.7-6.1)
[2018-10-14 10:02] LABS: CHLORIDE 110 mEq/L (98-107)
[2018-10-14 10:09] LABS: LDL CHOLESTEROL 138 mg/dL (5-100)
[2018-10-14 10:10] LABS: HDL CHOLESTEROL 60 mg/dL (40-59)
[2018-10-14 10:11] LABS: T4 FREE 0.93 ng/dL (0.76-1.46)
[2018-10-14 10:37] LABS: VITAMIN B12 SERUM 423 pg/mL (211-911)
[2018-10-15 09:15] LABS: VITAMIN D 25-OH 29.9 ng/mL (30.0-100.0)
[2018-10-15 13:12] LABS: ANTI-NUCLEAR ANTIBODIES DIRECT Negative (Negative)
== END | disposition home or self-care (01) ==
LOC: LAB 09:22
PROVIDERS: ATTEND Internal Medicine Endocrinology, Diabetes & Metabolism
DX: E04.1 Nontoxic single thyroid nodule (principal); I10 Essential (primary) hypertension; E55.9 Vitamin D deficiency, unspecified; M19.90 Unspecified osteoarthritis, unspecified site
CPT/HCPCS: 36415; 80061; 82306; 82607; 83036; 84439; 84443; 84550; 85651; 86038; 86800

== ENCOUNTER → 2018-11-03 | Outpatient (CLI) | payer BC | END | disposition home or self-care (01) | LOC: CARD 10:21 | PROVIDERS: ATTEND Specialist | DX: I11.9 Hypertensive heart disease without heart failure (principal) | CPT/HCPCS: 93306 ==

== ENCOUNTER → 2019-02-07 | Outpatient (CLI) | payer BC ==
[2019-02-07 11:44] LABS: BASOPHILS % 0.6 % (0.0-2.0); EOSINOPHILS % 2.7 % (0.0-5.0); HEMOGLOBIN. 14.3 g/dL (14.0-18.0); LYMPHOCYTES % 41.3 % (20.0-50.0); MEAN CORPUSCULAR HEMOGLOBIN 33.6 pg (28.0-32.0); MEAN CORPUSCULAR VOLUME 98.5 fL (80.0-94.0); MEAN PLATELET VOLUME 8.3 fl (7.4-10.4); MONOCYTES % 6.3 % (2.0-8.0); NEUTROPHILS % 49.1 % (40.0-76.0); PLATELET 176 x1000/uL (130-400); RED BLOOD CELL COUNT 4.26 mill/uL (4.7-6.1); RED CELL DISTRIBUTION WIDTH 13.2 % (11.6-14.6)
[2019-02-07 11:55] LABS: CHLORIDE 109 mEq/L (98-107)
[2019-02-07 12:03] LABS: LDL CHOLESTEROL 101 mg/dL (5-100)
[2019-02-07 12:05] LABS: HDL CHOLESTEROL 66 mg/dL (40-59); T4 FREE 1.12 ng/dL (0.76-1.46)
[2019-02-08 09:06] LABS: VITAMIN D 25-OH 24.4 ng/mL (30.0-100.0)
== END | disposition home or self-care (01) ==
LOC: LAB 11:15
PROVIDERS: ATTEND Internal Medicine Endocrinology, Diabetes & Metabolism
DX: E04.1 Nontoxic single thyroid nodule (principal); M19.90 Unspecified osteoarthritis, unspecified site; E78.5 Hyperlipidemia, unspecified
CPT/HCPCS: 36415; 80061; 82306; 83036; 84439; 84443; 84550; 86800

== ENCOUNTER → 2019-04-04 | Outpatient (CLI) | payer BC ==
[2019-04-04 11:31] LABS: CHLORIDE 110 mEq/L (98-107)
[2019-04-04 11:45] LABS: LDL CHOLESTEROL 64 mg/dL (5-100)
[2019-04-04 11:46] LABS: HDL CHOLESTEROL 61 mg/dL (40-59)
== END | disposition home or self-care (01) ==
LOC: LAB 10:55
PROVIDERS: ATTEND Specialist
DX: I11.9 Hypertensive heart disease without heart failure (principal); I42.9 Cardiomyopathy, unspecified; E78.2 Mixed hyperlipidemia; R94.31 Abnormal electrocardiogram [ECG] [EKG]
CPT/HCPCS: 36415; 80053; 80061

== ENCOUNTER → 2019-05-10 | Outpatient (CLI) | payer BC ==
[2019-05-10 12:57] LABS: BASOPHILS % 0.5 % (0.0-2.0); EOSINOPHILS % 0.8 % (0.0-5.0); HEMATOCRIT. 44.8 % (42.0-52.0); HEMOGLOBIN. 15.4 g/dL (14.0-18.0); LYMPHOCYTES % 25.6 % (20.0-50.0); MEAN CORPUSCULAR HEMOGLOBIN 33.4 pg (28.0-32.0); MEAN CORPUSCULAR VOLUME 97.1 fL (80.0-94.0); MEAN PLATELET VOLUME 8.5 fl (7.4-10.4); MONOCYTES % 6.4 % (2.0-8.0); NEUTROPHILS % 66.7 % (40.0-76.0); PLATELET 188 x1000/uL (130-400); RED BLOOD CELL COUNT 4.61 mill/uL (4.7-6.1); RED CELL DISTRIBUTION WIDTH 13.2 % (11.6-14.6)
[2019-05-10 13:31] LABS: CHLORIDE 104 mEq/L (98-107)
[2019-05-10 13:38] LABS: LDL CHOLESTEROL 141 mg/dL (5-100)
[2019-05-10 13:39] LABS: HDL CHOLESTEROL 67 mg/dL (40-59)
[2019-05-10 13:40] LABS: T4 FREE 1.31 ng/dL (0.76-1.46)
[2019-05-10 14:28] LABS: VITAMIN B12 SERUM 401 pg/mL (211-911)
[2019-05-12 09:09] LABS: VITAMIN D 25-OH 32.6 ng/mL (30.0-100.0)
[2019-05-12 15:09] LABS: ANTI-NUCLEAR ANTIBODIES DIRECT Negative (Negative)
== END | disposition home or self-care (01) ==
LOC: LAB 12:07
PROVIDERS: ATTEND Internal Medicine Endocrinology, Diabetes & Metabolism
DX: I10 Essential (primary) hypertension (principal); E04.1 Nontoxic single thyroid nodule; E55.9 Vitamin D deficiency, unspecified; M19.90 Unspecified osteoarthritis, unspecified site
CPT/HCPCS: 36415; 80053; 80061; 82306; 82607; 83036; 84439; 84443; 84550; 85025; 85651; 86038; 86800

== ENCOUNTER → 2019-08-12 | Outpatient (CLI) | payer BC ==
[2019-08-12 12:33] LABS: CHLORIDE 107 mEq/L (98-107)
[2019-08-12 12:41] LABS: LDL CHOLESTEROL 124 mg/dL (5-100)
[2019-08-12 12:42] LABS: BASOPHILS % 0.4 % (0.0-2.0); EOSINOPHILS % 2.3 % (0.0-5.0); HDL CHOLESTEROL 54 mg/dL (40-59); HEMATOCRIT. 42.8 % (42.0-52.0); HEMOGLOBIN. 14.7 g/dL (14.0-18.0); LYMPHOCYTES % 35.9 % (20.0-50.0); MEAN CORPUSCULAR HEMOGLOBIN 33.9 pg (28.0-32.0); MEAN CORPUSCULAR VOLUME 98.3 fL (80.0-94.0); MEAN PLATELET VOLUME 8.8 fl (7.4-10.4); MONOCYTES % 5.8 % (2.0-8.0); NEUTROPHILS % 55.6 % (40.0-76.0); PLATELET 181 x1000/uL (130-400); RED BLOOD CELL COUNT 4.35 mill/uL (4.7-6.1); RED CELL DISTRIBUTION WIDTH 13.7 % (11.6-14.6); T4 FREE 1.16 ng/dL (0.76-1.46)
[2019-08-12 15:22] LABS: VITAMIN B12 SERUM 458 pg/mL (211-911)
[2019-08-13 09:06] LABS: VITAMIN D 25-OH 39.2 ng/mL (30.0-100.0)
[2019-08-13 13:06] LABS: ANTI-NUCLEAR ANTIBODIES DIRECT Negative (Negative)
== END | disposition home or self-care (01) ==
LOC: LAB 11:47
PROVIDERS: ATTEND Internal Medicine Endocrinology, Diabetes & Metabolism
DX: E04.1 Nontoxic single thyroid nodule (principal); I10 Essential (primary) hypertension; M19.90 Unspecified osteoarthritis, unspecified site; E55.9 Vitamin D deficiency, unspecified
CPT/HCPCS: 36415; 80053; 80061; 82306; 82607; 83036; 84439; 84443; 84550; 85025; 85651; 86038; 86800

== ENCOUNTER → 2019-09-26 | Outpatient (CLI) | payer BC | END | disposition home or self-care (01) | LOC: RAD 12:43 | PROVIDERS: ATTEND Internal Medicine Endocrinology, Diabetes & Metabolism | DX: M19.012 Primary osteoarthritis, left shoulder (principal); M25.512 Pain in left shoulder; M77.9 Enthesopathy, unspecified; M47.812 Spondylosis without myelopathy or radiculopathy, cervical region; M43.12 Spondylolisthesis, cervical region | CPT/HCPCS: 72040; 73030 ==

== ENCOUNTER → 2019-11-14 | Outpatient (CLI) | payer BC ==
[2019-11-14 13:14] LABS: BASOPHILS % 0.4 % (0.0-2.0); EOSINOPHILS % 1.2 % (0.0-5.0); HEMATOCRIT. 45.5 % (42.0-52.0); HEMOGLOBIN. 15.3 g/dL (14.0-18.0); LYMPHOCYTES % 30.2 % (20.0-50.0); MEAN CORPUSCULAR HEMOGLOBIN 32.9 pg (28.0-32.0); MEAN CORPUSCULAR VOLUME 97.9 fL (80.0-94.0); MEAN PLATELET VOLUME 8.5 fl (7.4-10.4); MONOCYTES % 6.2 % (2.0-8.0); PLATELET 179 x1000/uL (130-400); RED BLOOD CELL COUNT 4.65 mill/uL (4.7-6.1); RED CELL DISTRIBUTION WIDTH 14.1 % (11.6-14.6)
[2019-11-14 13:36] LABS: CHLORIDE 104 mEq/L (98-107)
[2019-11-14 13:43] LABS: LDL CHOLESTEROL 137 mg/dL (5-100)
[2019-11-14 13:46] LABS: HDL CHOLESTEROL 69 mg/dL (40-59); T4 FREE 1.08 ng/dL (0.76-1.46)
[2019-11-16 09:07] LABS: FOLICLE STIMULATING HORMONE 9.1 mIU/mL (1.5-12.4); LUTEINIZING HORMONE 5.1 mIU/mL (1.7-8.6); PROLACTIN 7.6 ng/mL (4.0-15.2); VITAMIN D 25-OH 37.8 ng/mL (30.0-100.0)
[2019-11-18 08:10] LABS: TESTOSTERONE FREE 7.6 pg/mL (6.6-18.1)
== END | disposition home or self-care (01) ==
LOC: LAB 11:44
PROVIDERS: ATTEND Internal Medicine Endocrinology, Diabetes & Metabolism
DX: E04.1 Nontoxic single thyroid nodule (principal); R73.9 Hyperglycemia, unspecified; E29.1 Testicular hypofunction
CPT/HCPCS: 36415; 80053; 80061; 82306; 83001; 83002; 83036; 84146; 84402; 84403; 84439; 84443; 85025; 86800

== ENCOUNTER → 2020-02-13 | Outpatient (CLI) | payer BC ==
[2020-02-13 09:16] LABS: BASOPHILS % 0.6 % (0.0-2.0); EOSINOPHILS % 2.2 % (0.0-5.0); HEMATOCRIT. 44.4 % (42.0-52.0); HEMOGLOBIN. 15.2 g/dL (14.0-18.0); LYMPHOCYTES % 32.8 % (20.0-50.0); MEAN CORPUSCULAR HEMOGLOBIN 33.3 pg (28.0-32.0); MEAN PLATELET VOLUME 8.3 fl (7.4-10.4); MONOCYTES % 6.4 % (2.0-8.0); PLATELET 187 x1000/uL (130-400); RED BLOOD CELL COUNT 4.58 mill/uL (4.7-6.1); RED CELL DISTRIBUTION WIDTH 13.2 % (11.6-14.6)
[2020-02-13 09:48] LABS: CHLORIDE 107 mEq/L (98-107)
[2020-02-13 09:56] LABS: LDL CHOLESTEROL 164 mg/dL (5-100)
[2020-02-13 09:58] LABS: HDL CHOLESTEROL 68 mg/dL (40-59); T4 FREE 1.14 ng/dL (0.76-1.46)
[2020-02-14 09:06] LABS: VITAMIN D 25-OH 28.2 ng/mL (30.0-100.0)
== END | disposition home or self-care (01) ==
LOC: LAB 08:38
PROVIDERS: ATTEND Internal Medicine Endocrinology, Diabetes & Metabolism
DX: E04.1 Nontoxic single thyroid nodule (principal); R73.9 Hyperglycemia, unspecified; E78.00 Pure hypercholesterolemia, unspecified; M19.90 Unspecified osteoarthritis, unspecified site
CPT/HCPCS: 36415; 80053; 80061; 82306; 83036; 84439; 84443; 84550; 85025; 86800

== ENCOUNTER → 2020-05-09 | Outpatient (CLI) | payer BC ==
[2020-05-09 08:05] LABS: BASOPHILS % 0.6 % (0.0-2.0); EOSINOPHILS % 2.1 % (0.0-5.0); HEMATOCRIT. 43.6 % (42.0-52.0); HEMOGLOBIN. 14.5 g/dL (14.0-18.0); LYMPHOCYTES % 30.8 % (20.0-50.0); MEAN CORPUSCULAR HEMOGLOBIN 32.2 pg (28.0-32.0); MEAN CORPUSCULAR VOLUME 96.9 fL (80.0-94.0); MEAN PLATELET VOLUME 8.5 fl (7.4-10.4); MONOCYTES % 6.6 % (2.0-8.0); NEUTROPHILS % 59.9 % (40.0-76.0); PLATELET 179 x1000/uL (130-400); RED CELL DISTRIBUTION WIDTH 13.4 % (11.6-14.6)
[2020-05-09 08:17] LABS: CHLORIDE 108 mEq/L (98-107)
[2020-05-09 08:23] LABS: LDL CHOLESTEROL 138 mg/dL (5-100)
[2020-05-09 08:25] LABS: HDL CHOLESTEROL 60 mg/dL (40-59)
== END | disposition home or self-care (01) ==
LOC: LAB 07:35
PROVIDERS: ATTEND Internal Medicine Endocrinology, Diabetes & Metabolism
DX: E78.5 Hyperlipidemia, unspecified (principal); R73.9 Hyperglycemia, unspecified; M19.90 Unspecified osteoarthritis, unspecified site; Z12.5 Encounter for screening for malignant neoplasm of prostate
CPT/HCPCS: 36415; 80053; 80061; 82306; 84153; 84550; 85025; G0103

== ENCOUNTER → 2020-08-29 | Outpatient (CLI) | payer BC ==
[2020-08-29 09:57] LABS: BASOPHILS % 0.4 % (0.0-2.0); EOSINOPHILS % 1.7 % (0.0-5.0); HEMATOCRIT. 42.7 % (42.0-52.0); HEMOGLOBIN. 14.7 g/dL (14.0-18.0); LYMPHOCYTES % 30.6 % (20.0-50.0); MEAN CORPUSCULAR HEMOGLOBIN 33.7 pg (28.0-32.0); MEAN PLATELET VOLUME 7.7 fl (7.4-10.4); NEUTROPHILS % 61.3 % (40.0-76.0); PLATELET 174 x1000/uL (130-400); RED BLOOD CELL COUNT 4.36 mill/uL (4.7-6.1); RED CELL DISTRIBUTION WIDTH 13.9 % (11.6-14.6)
[2020-08-29 10:19] LABS: CHLORIDE 109 mEq/L (98-107)
[2020-08-29 10:27] LABS: LDL CHOLESTEROL 130 mg/dL (5-100)
[2020-08-29 10:29] LABS: HDL CHOLESTEROL 67 mg/dL (40-59)
== END | disposition home or self-care (01) ==
LOC: LAB 09:31
PROVIDERS: ATTEND Internal Medicine Endocrinology, Diabetes & Metabolism
DX: E78.5 Hyperlipidemia, unspecified (principal); R73.9 Hyperglycemia, unspecified; E55.9 Vitamin D deficiency, unspecified; M19.90 Unspecified osteoarthritis, unspecified site
CPT/HCPCS: 36415; 80053; 80061; 82306; 83036; 84550; 85025

== ENCOUNTER → 2020-11-26 | Outpatient (CLI) | payer BC ==
[2020-11-26 13:16] LABS: BASOPHILS % 0.3 % (0.0-2.0); EOSINOPHILS % 1.1 % (0.0-5.0); HEMATOCRIT. 40.5 % (42.0-52.0); HEMOGLOBIN. 14.2 g/dL (14.0-18.0); LYMPHOCYTES % 26.3 % (20.0-50.0); MEAN CORPUSCULAR HEMOGLOBIN 33.5 pg (28.0-32.0); MEAN CORPUSCULAR VOLUME 95.3 fL (80.0-94.0); MONOCYTES % 5.7 % (2.0-8.0); NEUTROPHILS % 66.6 % (40.0-76.0); PLATELET 176 x1000/uL (130-400); RED BLOOD CELL COUNT 4.25 mill/uL (4.7-6.1); RED CELL DISTRIBUTION WIDTH 13.1 % (11.6-14.6)
[2020-11-26 13:30] LABS: CHLORIDE 110 mEq/L (98-107)
[2020-11-26 13:38] LABS: HDL CHOLESTEROL 58 mg/dL (40-59); LDL CHOLESTEROL 135 mg/dL (5-100)
[2020-11-26 13:39] LABS: T4 FREE 1.11 ng/dL (0.76-1.46)
[2020-11-26 14:28] LABS: VITAMIN B12 SERUM 429 pg/mL (211-911)
[2020-11-27 10:07] LABS: ANTI-NUCLEAR ANTIBODIES DIRECT Negative (Negative); VITAMIN D 25-OH 46.1 ng/mL (30.0-100.0)
== END | disposition home or self-care (01) ==
LOC: LAB 12:42
PROVIDERS: ATTEND Internal Medicine Endocrinology, Diabetes & Metabolism
DX: I10 Essential (primary) hypertension (principal); E04.1 Nontoxic single thyroid nodule; E55.9 Vitamin D deficiency, unspecified; M19.90 Unspecified osteoarthritis, unspecified site
CPT/HCPCS: 36415; 80053; 80061; 82306; 82607; 83036; 84439; 84443; 84550; 85025; 85651; 86038; 86800

== ENCOUNTER → 2021-02-27 | Outpatient (CLI) | payer BC ==
[2021-02-27 13:44] LABS: BASOPHILS % 0.4 % (0.0-2.0); EOSINOPHILS % 1.8 % (0.0-5.0); HEMATOCRIT. 42.2 % (42.0-52.0); HEMOGLOBIN. 14.5 g/dL (14.0-18.0); MEAN CORPUSCULAR HEMOGLOBIN 33.3 pg (28.0-32.0); MEAN PLATELET VOLUME 8.5 fl (7.4-10.4); MONOCYTES % 6.8 % (2.0-8.0); PLATELET 192 x1000/uL (130-400); RED BLOOD CELL COUNT 4.35 mill/uL (4.7-6.1); RED CELL DISTRIBUTION WIDTH 13.3 % (11.6-14.6)
[2021-02-27 13:51] LABS: CHLORIDE 110 mEq/L (98-107)
[2021-02-27 13:58] LABS: LDL CHOLESTEROL 125 mg/dL (5-100)
[2021-02-27 14:00] LABS: HDL CHOLESTEROL 59 mg/dL (40-59); T4 FREE 1.06 ng/dL (0.76-1.46)
[2021-02-27 14:34] LABS: VITAMIN B12 SERUM 432 pg/mL (211-911)
[2021-02-28 09:10] LABS: ANTI-NUCLEAR ANTIBODIES DIRECT Negative (Negative); VITAMIN D 25-OH 38.4 ng/mL (30.0-100.0)
== END | disposition home or self-care (01) ==
LOC: LAB 13:01
PROVIDERS: ATTEND Internal Medicine Endocrinology, Diabetes & Metabolism
DX: I10 Essential (primary) hypertension (principal); E55.9 Vitamin D deficiency, unspecified; M19.90 Unspecified osteoarthritis, unspecified site; E04.1 Nontoxic single thyroid nodule
CPT/HCPCS: 36415; 80053; 80061; 82306; 82607; 83036; 84439; 84443; 84550; 85025; 85651; 86038; 86800

== ENCOUNTER → 2021-06-20 | Outpatient (CLI) | payer BC ==
[2021-06-20 07:39] LABS: BASOPHILS % 0.7 % (0.0-2.0); EOSINOPHILS % 1.9 % (0.0-5.0); HEMATOCRIT. 43.3 % (42.0-52.0); HEMOGLOBIN. 14.7 g/dL (14.0-18.0); LYMPHOCYTES % 29.9 % (20.0-50.0); MEAN CORPUSCULAR HEMOGLOBIN 33.1 pg (28.0-32.0); MEAN CORPUSCULAR VOLUME 97.1 fL (80.0-94.0); MEAN PLATELET VOLUME 8.6 fl (7.4-10.4); MONOCYTES % 6.3 % (2.0-8.0); NEUTROPHILS % 61.2 % (40.0-76.0); PLATELET 177 x1000/uL (130-400); RED BLOOD CELL COUNT 4.46 mill/uL (4.7-6.1); RED CELL DISTRIBUTION WIDTH 13.5 % (11.6-14.6)
[2021-06-20 07:41] LABS: CHLORIDE 111 mEq/L (98-107)
[2021-06-20 07:50] LABS: LDL CHOLESTEROL 135 mg/dL (5-100); T4 FREE 1.03 ng/dL (0.76-1.46)
[2021-06-20 07:51] LABS: HDL CHOLESTEROL 64 mg/dL (40-59)
== END | disposition home or self-care (01) ==
LOC: LAB 06:57
PROVIDERS: ATTEND Internal Medicine Endocrinology, Diabetes & Metabolism
DX: E04.1 Nontoxic single thyroid nodule (principal); E78.5 Hyperlipidemia, unspecified; R73.9 Hyperglycemia, unspecified; E55.9 Vitamin D deficiency, unspecified
CPT/HCPCS: 36415; 80053; 80061; 82306; 83036; 84439; 84443; 84550; 85025

== ENCOUNTER → 2021-09-12 | Outpatient (CLI) | payer BC ==
[2021-09-12 08:38] LABS: BASOPHILS % 0.6 % (0.0-2.0); EOSINOPHILS % 1.9 % (0.0-5.0); HEMATOCRIT. 43.7 % (42.0-52.0); HEMOGLOBIN. 14.8 g/dL (14.0-18.0); LYMPHOCYTES % 28.2 % (20.0-50.0); MEAN CORPUSCULAR VOLUME 97.5 fL (80.0-94.0); MEAN PLATELET VOLUME 8.1 fl (7.4-10.4); MONOCYTES % 6.8 % (2.0-8.0); NEUTROPHILS % 62.5 % (40.0-76.0); PLATELET 187 x1000/uL (130-400); RED BLOOD CELL COUNT 4.48 mill/uL (4.7-6.1); RED CELL DISTRIBUTION WIDTH 13.8 % (11.6-14.6)
[2021-09-12 08:58] LABS: CHLORIDE 107 mEq/L (98-107)
[2021-09-12 09:11] LABS: HDL CHOLESTEROL 67 mg/dL (40-59); LDL CHOLESTEROL 127 mg/dL (5-100); T4 FREE 1.04 ng/dL (0.76-1.46)
== END | disposition home or self-care (01) ==
LOC: LAB 08:06
PROVIDERS: ATTEND Internal Medicine Endocrinology, Diabetes & Metabolism
DX: E04.1 Nontoxic single thyroid nodule (principal); E55.9 Vitamin D deficiency, unspecified; E78.5 Hyperlipidemia, unspecified; R73.9 Hyperglycemia, unspecified
CPT/HCPCS: 36415; 80053; 80061; 82306; 83036; 84439; 84443; 84550; 85025

== ENCOUNTER → 2022-01-29 | Outpatient (CLI) | payer BC ==
[2022-01-29 15:15] LABS: BASOPHILS % 0.6 % (0.0-2.0); EOSINOPHILS % 2.7 % (0.0-5.0); HEMATOCRIT. 40.7 % (42.0-52.0); HEMOGLOBIN. 13.8 g/dL (14.0-18.0); MEAN CORPUSCULAR HEMOGLOBIN 33.1 pg (28.0-32.0); MEAN CORPUSCULAR VOLUME 97.6 fL (80.0-94.0); MEAN PLATELET VOLUME 8.4 fl (7.4-10.4); MONOCYTES % 6.7 % (2.0-8.0); PLATELET 174 x1000/uL (130-400); RED BLOOD CELL COUNT 4.17 mill/uL (4.7-6.1); RED CELL DISTRIBUTION WIDTH 13.6 % (11.6-14.6)
[2022-01-29 15:27] LABS: CHLORIDE 108 mEq/L (98-107)
[2022-01-29 15:34] LABS: HDL CHOLESTEROL 62 mg/dL (40-59); LDL CHOLESTEROL 133 mg/dL (5-100)
== END | disposition home or self-care (01) ==
LOC: LAB 14:35
PROVIDERS: ATTEND Internal Medicine Endocrinology, Diabetes & Metabolism
DX: R73.9 Hyperglycemia, unspecified (principal); E78.00 Pure hypercholesterolemia, unspecified; D75.89 Other specified diseases of blood and blood-forming organs
CPT/HCPCS: 36415; 80053; 80061; 83036; 85025

== ENCOUNTER → 2022-04-24 | Outpatient (CLI) | payer BC ==
[2022-04-24 11:43] LABS: BASOPHILS % 0.6 % (0.0-2.0); EOSINOPHILS % 2.1 % (0.0-5.0); HEMATOCRIT. 45.3 % (42.0-52.0); HEMOGLOBIN. 15.4 g/dL (14.0-18.0); LYMPHOCYTES % 32.2 % (20.0-50.0); MEAN CORPUSCULAR HEMOGLOBIN 33.3 pg (28.0-32.0); MEAN CORPUSCULAR VOLUME 98.3 fL (80.0-94.0); MEAN PLATELET VOLUME 8.4 fl (7.4-10.4); MONOCYTES % 6.9 % (2.0-8.0); NEUTROPHILS % 58.2 % (40.0-76.0); PLATELET 189 x1000/uL (130-400); RED BLOOD CELL COUNT 4.61 mill/uL (4.7-6.1); RED CELL DISTRIBUTION WIDTH 13.5 % (11.6-14.6)
[2022-04-24 13:55] LABS: CHLORIDE 105 mEq/L (98-107)
[2022-04-24 14:00] LABS: HDL CHOLESTEROL 58 mg/dL (40-59); LDL CHOLESTEROL 146 mg/dL (5-100)
== END | disposition home or self-care (01) ==
LOC: LAB 11:12
PROVIDERS: ATTEND Internal Medicine Endocrinology, Diabetes & Metabolism
DX: R73.9 Hyperglycemia, unspecified (principal); D75.89 Other specified diseases of blood and blood-forming organs
CPT/HCPCS: 36415; 80053; 80061; 83036; 85025

== ENCOUNTER → 2022-07-24 | Outpatient (CLI) | payer BC ==
[2022-07-24 11:47] LABS: BASOPHILS % 0.6 % (0.0-2.0); EOSINOPHILS % 3.4 % (0.0-5.0); HEMATOCRIT. 42.9 % (42.0-52.0); HEMOGLOBIN. 14.5 g/dL (14.0-18.0); LYMPHOCYTES % 40.6 % (20.0-50.0); MEAN CORPUSCULAR HEMOGLOBIN 33.8 pg (28.0-32.0); MEAN CORPUSCULAR VOLUME 99.7 fL (80.0-94.0); MEAN PLATELET VOLUME 8.7 fl (7.4-10.4); MONOCYTES % 6.2 % (2.0-8.0); NEUTROPHILS % 49.2 % (40.0-76.0); PLATELET 183 x1000/uL (130-400); RED CELL DISTRIBUTION WIDTH 13.5 % (11.6-14.6)
[2022-07-24 12:02] LABS: CHLORIDE 109 mEq/L (98-107)
[2022-07-24 12:15] LABS: HDL CHOLESTEROL 61 mg/dL (40-59); LDL CHOLESTEROL 125 mg/dL (5-100); T4 FREE 1.08 ng/dL (0.76-1.46)
== END | disposition home or self-care (01) ==
LOC: LAB 11:05
PROVIDERS: ATTEND Internal Medicine Endocrinology, Diabetes & Metabolism
DX: Z13.9 Encounter for screening, unspecified (principal); I10 Essential (primary) hypertension; R73.9 Hyperglycemia, unspecified; E55.9 Vitamin D deficiency, unspecified; E04.1 Nontoxic single thyroid nodule; E78.00 Pure hypercholesterolemia, unspecified
CPT/HCPCS: 36415; 80053; 80061; 82306; 83036; 84153; 84439; 84443; 84550; 85025; G0103

== ENCOUNTER → 2022-10-17 | Outpatient (CLI) | payer BC ==
[2022-10-17 15:14] LABS: CHLORIDE 105 mEq/L (98-107); INDEX HEMOLYSI 1 (1-3); INDEX ICTERIC 1 (1-4); INDEX LIPEMIC 1 (1-3); POTASSIUM 4.5 mEq/L (3.5-5.1); SODIUM 135 mEq/L (136-145)
[2022-10-17 15:30] LABS: ALANINE AMINOTRANSFERASE 23 IU/L (13-61); ASPARTATE AMINOTRANSFERASE 20 IU/L (15-37); BILIRUBIN TOTAL 0.8 mg/dL (0.1-1.0); CALCIUM 9.7 mg/dL (8.5-10.1); CARBON DIOXIDE 26 mEq/L (21-32); CHOLESTEROL 216 mg/dL (<200); GLUCOSE 101 mg/dL (70-105); HDL CHOLESTEROL 72 mg/dL (40-59); LDL CHOLESTEROL 145 mg/dL (5-100); T4 FREE 1.09 ng/dL (0.76-1.46); TRIGLYCERIDE 88 mg/dL (0-150); UREA NITROGEN BLOOD 14 mg/dL (7-21); URIC ACID 6.7 mg/dL (2.6-7.2)
[2022-10-17 15:31] LABS: BASOPHILS % 0.4 % (0.0-2.0); EOSINOPHILS % 0.6 % (0.0-5.0); HEMOGLOBIN. 14.7 g/dL (14.0-18.0); LYMPHOCYTES % 20.6 % (20.0-50.0); MEAN CORPUSCULAR HEMOGLOBIN 33.7 pg (28.0-32.0); MEAN CORPUSCULAR HGB CONC 34.2 g/dL (31.0-37.0); MEAN CORPUSCULAR VOLUME 98.7 fL (80.0-94.0); MEAN PLATELET VOLUME 9.1 fl (7.4-10.4); MONOCYTES % 5.3 % (2.0-8.0); NEUTROPHILS % 73.1 % (40.0-76.0); PLATELET 185 x1000/uL (130-400); RED BLOOD CELL COUNT 4.35 mill/uL (4.7-6.1); RED CELL DISTRIBUTION WIDTH 14.3 % (11.6-14.6); WHITE BLOOD COUNT 9.1 x1000/uL (4.5-11.0)
== END | disposition home or self-care (01) ==
LOC: LAB 14:17
PROVIDERS: ATTEND Internal Medicine Endocrinology, Diabetes & Metabolism
DX: I10 Essential (primary) hypertension (principal); E04.1 Nontoxic single thyroid nodule; E55.9 Vitamin D deficiency, unspecified; R73.9 Hyperglycemia, unspecified; E78.00 Pure hypercholesterolemia, unspecified; M19.90 Unspecified osteoarthritis, unspecified site
CPT/HCPCS: 36415; 80053; 80061; 82306; 83036; 84439; 84443; 84550; 85025

== ENCOUNTER → 2023-01-23 | Outpatient (CLI) | payer BC ==
[2023-01-23 16:08] LABS: BASOPHILS % 0.5 % (0.0-2.0); EOSINOPHILS % 1.7 % (0.0-5.0); HEMATOCRIT. 43.1 % (42.0-52.0); HEMOGLOBIN. 14.8 g/dL (14.0-18.0); LYMPHOCYTES % 26.8 % (20.0-50.0); MEAN CORPUSCULAR HEMOGLOBIN 33.9 pg (28.0-32.0); MEAN CORPUSCULAR HGB CONC 34.3 g/dL (31.0-37.0); MEAN CORPUSCULAR VOLUME 98.8 fL (80.0-94.0); MEAN PLATELET VOLUME 8.3 fl (7.4-10.4); MONOCYTES % 6.2 % (2.0-8.0); NEUTROPHILS % 64.8 % (40.0-76.0); PLATELET 179 x1000/uL (130-400); RED BLOOD CELL COUNT 4.36 mill/uL (4.7-6.1); RED CELL DISTRIBUTION WIDTH 13.9 % (11.6-14.6)
[2023-01-23 16:48] LABS: CHLORIDE 107 mEq/L (98-107); INDEX HEMOLYSI 1 (1-3); INDEX ICTERIC 1 (1-4); INDEX LIPEMIC 1 (1-3); POTASSIUM 3.9 mEq/L (3.5-5.1); SODIUM 141 mEq/L (136-145)
[2023-01-23 17:01] LABS: ALANINE AMINOTRANSFERASE 27 IU/L (13-61); ASPARTATE AMINOTRANSFERASE 22 IU/L (15-37); BILIRUBIN TOTAL 0.6 mg/dL (0.1-1.0); CALCIUM 9.2 mg/dL (8.5-10.1); CARBON DIOXIDE 30 mEq/L (21-32); CHOLESTEROL 214 mg/dL (<200); CREATININE 0.9 mg/dL (0.6-1.3); GLUCOSE 99 mg/dL (70-105); HDL CHOLESTEROL 74 mg/dL (40-59); LDL CHOLESTEROL 123 mg/dL (5-100); T4 FREE 1.04 ng/dL (0.76-1.46); TRIGLYCERIDE 77 mg/dL (0-150); UREA NITROGEN BLOOD 10 mg/dL (7-21); URIC ACID 5.3 mg/dL (2.6-7.2)
== END | disposition home or self-care (01) ==
LOC: LAB 15:13
PROVIDERS: ATTEND Internal Medicine Endocrinology, Diabetes & Metabolism
DX: I10 Essential (primary) hypertension (principal); E78.00 Pure hypercholesterolemia, unspecified; E55.9 Vitamin D deficiency, unspecified; R73.9 Hyperglycemia, unspecified; E04.9 Nontoxic goiter, unspecified; M19.90 Unspecified osteoarthritis, unspecified site
CPT/HCPCS: 36415; 80053; 80061; 82306; 83036; 84439; 84443; 84550; 85025

== ENCOUNTER → 2023-04-30 | Outpatient (CLI) | payer BC ==
[2023-04-30 15:17] LABS: BASOPHILS % 0.4 % (0.0-2.0); EOSINOPHILS % 1.7 % (0.0-5.0); HEMATOCRIT. 43.8 % (42.0-52.0); HEMOGLOBIN. 14.9 g/dL (14.0-18.0); LYMPHOCYTES % 25.6 % (20.0-50.0); MEAN CORPUSCULAR HEMOGLOBIN 33.6 pg (28.0-32.0); MEAN CORPUSCULAR VOLUME 99.1 fL (80.0-94.0); MEAN PLATELET VOLUME 8.7 fl (7.4-10.4); MONOCYTES % 6.3 % (2.0-8.0); PLATELET 177 x1000/uL (130-400); RED BLOOD CELL COUNT 4.42 mill/uL (4.7-6.1); RED CELL DISTRIBUTION WIDTH 13.2 % (11.6-14.6); WHITE BLOOD COUNT 7.1 x1000/uL (4.5-11.0)
[2023-04-30 15:36] LABS: ALANINE AMINOTRANSFERASE 14 IU/L (10-49); ALBUMIN 4.4 g/dL (3.2-4.8); ASPARTATE AMINOTRANSFERASE 18 IU/L (<34); BILIRUBIN TOTAL 0.8 mg/dL (0.1-1.0); CALCIUM 9.4 mg/dL (8.7-10.4); CARBON DIOXIDE 29 mEq/L (21-32); CHLORIDE 108 mEq/L (98-107); CHOLESTEROL 213 mg/dL (<200); CREATININE 1.1 mg/dL (0.6-1.3); GLUCOSE 98 mg/dL (70-105); HDL CHOLESTEROL 58 mg/dL (>55); LDL CHOLESTEROL 148 mg/dL (5-100); POTASSIUM 4.6 mEq/L (3.5-5.1); PROTEIN TOTAL 7.7 g/dL (6.0-8.3); SODIUM 140 mEq/L (136-145); T4 FREE 1.14 ng/dL (0.89-1.76); THYROID STIMULATING HORMONE 2.95 uIU/mL (0.55-4.78); TRIGLYCERIDE 114 mg/dL (0-150); UREA NITROGEN BLOOD 15 mg/dL (9-23)
== END | disposition home or self-care (01) ==
LOC: LAB 14:28
PROVIDERS: ATTEND Internal Medicine Endocrinology, Diabetes & Metabolism
DX: I10 Essential (primary) hypertension (principal); R73.9 Hyperglycemia, unspecified; E04.1 Nontoxic single thyroid nodule; E78.00 Pure hypercholesterolemia, unspecified
CPT/HCPCS: 36415; 80053; 80061; 82306; 83036; 84439; 84443; 85025

== ENCOUNTER → 2023-09-16 | Outpatient (CLI) | payer BC ==
[2023-09-16 15:48] LABS: BASOPHILS % 0.9 % (0.0-2.0); DIFFERENTIAL COMMENT 0; EOSINOPHILS % 2.5 % (0.0-5.0); HEMATOCRIT. 43.2 % (42.0-52.0); HEMOGLOBIN. 14.6 g/dL (14.0-18.0); LYMPHOCYTES % 37.4 % (20.0-50.0); MEAN CORPUSCULAR HEMOGLOBIN 34.1 pg (28.0-32.0); MEAN CORPUSCULAR HGB CONC 33.9 g/dL (31.0-37.0); MEAN CORPUSCULAR VOLUME 100.7 fL (80.0-94.0); MONOCYTES % 8.2 % (2.0-8.0); PLATELET 176 x1000/uL (130-400); RED BLOOD CELL COUNT 4.29 mill/uL (4.7-6.1); RED CELL DISTRIBUTION WIDTH 13.6 % (11.6-14.6); WHITE BLOOD COUNT 5.1 x1000/uL (4.5-11.0)
[2023-09-16 15:52] LABS: CARBON DIOXIDE 27 mEq/L (21-32); CHLORIDE 108 mEq/L (98-107); POTASSIUM 4.4 mEq/L (3.5-5.1); SODIUM 141 mEq/L (136-145)
[2023-09-16 15:53] LABS: CALCIUM 9.5 mg/dL (8.7-10.4)
[2023-09-16 15:58] LABS: CREATININE 0.9 mg/dL (0.6-1.3); GLUCOSE 91 mg/dL (70-105); TRIGLYCERIDE 74 mg/dL (0-150); UREA NITROGEN BLOOD 11 mg/dL (9-23)
[2023-09-16 15:59] LABS: ALANINE AMINOTRANSFERASE 15 IU/L (10-49); ALBUMIN 4.2 g/dL (3.2-4.8); ASPARTATE AMINOTRANSFERASE 21 IU/L (<34); LDL CHOLESTEROL 156 mg/dL (5-100)
[2023-09-16 16:00] LABS: CHOLESTEROL 231 mg/dL (<200); HDL CHOLESTEROL 58 mg/dL (>55); PROTEIN TOTAL 7.3 g/dL (6.0-8.3)
[2023-09-16 16:02] LABS: T4 FREE 1.17 ng/dL (0.89-1.76); THYROID STIMULATING HORMONE 2.87 uIU/mL (0.55-4.78)
== END | disposition home or self-care (01) ==
LOC: LAB 14:58
PROVIDERS: ATTEND Internal Medicine Endocrinology, Diabetes & Metabolism
DX: I10 Essential (primary) hypertension (principal); E78.00 Pure hypercholesterolemia, unspecified; E04.1 Nontoxic single thyroid nodule; E55.9 Vitamin D deficiency, unspecified; R73.9 Hyperglycemia, unspecified
CPT/HCPCS: 36415; 80053; 80061; 82306; 83036; 84439; 84443; 85025

== ENCOUNTER → 2023-12-21 | Outpatient (CLI) | payer BC ==
[2023-12-21 11:44] LABS: CHLORIDE 106 mEq/L (98-107); POTASSIUM 4.7 mEq/L (3.5-5.1); SODIUM 140 mEq/L (136-145)
[2023-12-21 11:45] LABS: CALCIUM 9.7 mg/dL (8.7-10.4); CARBON DIOXIDE 30 mEq/L (21-32)
[2023-12-21 11:49] LABS: URIC ACID 6.6 mg/dL (3.7-9.2)
[2023-12-21 11:50] LABS: CREATININE 1.1 mg/dL (0.6-1.3); GLUCOSE 105 mg/dL (70-105); TRIGLYCERIDE 95 mg/dL (0-150); UREA NITROGEN BLOOD 13 mg/dL (9-23)
[2023-12-21 11:51] LABS: ALANINE AMINOTRANSFERASE 18 IU/L (10-49); LDL CHOLESTEROL 159 mg/dL (5-100)
[2023-12-21 11:52] LABS: ALBUMIN 4.2 g/dL (3.2-4.8); ASPARTATE AMINOTRANSFERASE 23 IU/L (<34); BILIRUBIN TOTAL 0.8 mg/dL (0.1-1.0); CHOLESTEROL 216 mg/dL (<200); HDL CHOLESTEROL 56 mg/dL (>55); PROTEIN TOTAL 7.5 g/dL (6.0-8.3)
[2023-12-21 11:53] LABS: T4 FREE 1.29 ng/dL (0.89-1.76)
[2023-12-21 11:54] LABS: THYROID STIMULATING HORMONE 3.04 uIU/mL (0.55-4.78)
[2023-12-21 11:55] LABS: BASOPHILS % 0.5 % (0.0-2.0); DIFFERENTIAL COMMENT 0; EOSINOPHILS % 2.7 % (0.0-5.0); HEMATOCRIT. 44.9 % (42.0-52.0); HEMOGLOBIN. 15.3 g/dL (14.0-18.0); LYMPHOCYTES % 29.9 % (20.0-50.0); MEAN CORPUSCULAR HEMOGLOBIN 34.4 pg (28.0-32.0); MEAN PLATELET VOLUME 8.9 fl (7.4-10.4); MONOCYTES % 6.7 % (2.0-8.0); NEUTROPHILS % 60.2 % (40.0-76.0); PLATELET 183 x1000/uL (130-400); RED BLOOD CELL COUNT 4.45 mill/uL (4.7-6.1); RED CELL DISTRIBUTION WIDTH 13.7 % (11.6-14.6); WHITE BLOOD COUNT 6.8 x1000/uL (4.5-11.0)
== END | disposition home or self-care (01) ==
LOC: LAB 10:41
PROVIDERS: ATTEND Internal Medicine Endocrinology, Diabetes & Metabolism
DX: I10 Essential (primary) hypertension (principal); E78.00 Pure hypercholesterolemia, unspecified; R73.9 Hyperglycemia, unspecified; E55.9 Vitamin D deficiency, unspecified; E04.1 Nontoxic single thyroid nodule
CPT/HCPCS: 36415; 80053; 80061; 82306; 83036; 84439; 84443; 84550; 85025

== ENCOUNTER → 2024-03-30 | Outpatient (CLI) | payer BC ==
[2024-03-30 10:18] LABS: BASOPHILS % 0.5 % (0.0-2.0); DIFFERENTIAL COMMENT 0; EOSINOPHILS % 3.4 % (0.0-5.0); HEMATOCRIT. 41.6 % (42.0-52.0); HEMOGLOBIN. 14.1 g/dL (14.0-18.0); LYMPHOCYTES % 36.4 % (20.0-50.0); MEAN CORPUSCULAR HEMOGLOBIN 34.3 pg (28.0-32.0); MEAN CORPUSCULAR HGB CONC 33.9 g/dL (31.0-37.0); MEAN CORPUSCULAR VOLUME 101.1 fL (80.0-94.0); MEAN PLATELET VOLUME 8.8 fl (7.4-10.4); MONOCYTES % 7.2 % (2.0-8.0); NEUTROPHILS % 52.5 % (40.0-76.0); PLATELET 156 x1000/uL (130-400); RED BLOOD CELL COUNT 4.12 mill/uL (4.7-6.1); RED CELL DISTRIBUTION WIDTH 13.6 % (11.6-14.6); WHITE BLOOD COUNT 6.3 x1000/uL (4.5-11.0)
[2024-03-30 10:33] LABS: CHLORIDE 107 mEq/L (98-107); POTASSIUM 4.3 mEq/L (3.5-5.1); SODIUM 141 mEq/L (136-145)
[2024-03-30 10:34] LABS: CALCIUM 9.4 mg/dL (8.7-10.4); CARBON DIOXIDE 29 mEq/L (21-32)
[2024-03-30 10:38] LABS: URIC ACID 7.5 mg/dL (3.7-9.2)
[2024-03-30 10:39] LABS: CREATININE 1.2 mg/dL (0.6-1.3); GLUCOSE 107 mg/dL (70-105); TRIGLYCERIDE 132 mg/dL (0-150); UREA NITROGEN BLOOD 19 mg/dL (9-23)
[2024-03-30 10:40] LABS: LDL CHOLESTEROL 124 mg/dL (5-100)
[2024-03-30 10:41] LABS: ALANINE AMINOTRANSFERASE 29 IU/L (10-49); ALBUMIN 4.2 g/dL (3.2-4.8); ASPARTATE AMINOTRANSFERASE 29 IU/L (<34); BILIRUBIN TOTAL 0.6 mg/dL (0.1-1.0); CHOLESTEROL 209 mg/dL (<200); HDL CHOLESTEROL 49 mg/dL (>55)
[2024-03-30 10:43] LABS: T4 FREE 1.14 ng/dL (0.89-1.76); THYROID STIMULATING HORMONE 4.24 uIU/mL (0.55-4.78)
[2024-03-31 13:06] LABS: PROSTATE SPECIFIC AG TOTAL 1.2 ng/mL (0.0-4.0)
[2024-04-01 04:10] LABS: VITAMIN D 25-OH 39.6 ng/mL (30.0-100.0)
== END | disposition home or self-care (01) ==
LOC: LAB 09:36
DX: I10 Essential (primary) hypertension (principal); E78.00 Pure hypercholesterolemia, unspecified; E55.9 Vitamin D deficiency, unspecified; R73.9 Hyperglycemia, unspecified
CPT/HCPCS: 36415; 80053; 80061; 82306; 83036; 84153; 84439; 84443; 84550; 85025

== ENCOUNTER → 2024-07-06 | Outpatient (CLI) | payer BC ==
[2024-07-06 15:43] LABS: BASOPHILS % 0.7 % (0.0-2.0); EOSINOPHILS % 2.5 % (0.0-5.0); HEMATOCRIT. 44.5 % (42.0-52.0); LYMPHOCYTES % 42.3 % (20.0-50.0); MEAN CORPUSCULAR HEMOGLOBIN 33.2 pg (28.0-32.0); MEAN CORPUSCULAR HGB CONC 33.7 g/dL (31.0-37.0); MEAN CORPUSCULAR VOLUME 98.5 fL (80.0-94.0); MEAN PLATELET VOLUME 8.9 fl (7.4-10.4); MONOCYTES % 7.1 % (2.0-8.0); NEUTROPHILS % 47.4 % (40.0-76.0); PLATELET 183 x1000/uL (130-400); RED BLOOD CELL COUNT 4.51 mill/uL (4.7-6.1); RED CELL DISTRIBUTION WIDTH 14.4 % (11.6-14.6); WHITE BLOOD COUNT 6.3 x1000/uL (4.5-11.0)
[2024-07-06 15:52] LABS: CARBON DIOXIDE 29 mEq/L (21-32); CHLORIDE 106 mEq/L (98-107); SODIUM 141 mEq/L (136-145)
[2024-07-06 15:53] LABS: CALCIUM 9.4 mg/dL (8.7-10.4)
[2024-07-06 15:57] LABS: CREATININE 1.1 mg/dL (0.6-1.3); GLUCOSE 98 mg/dL (70-105); URIC ACID 7.4 mg/dL (3.7-9.2)
[2024-07-06 15:58] LABS: LDL CHOLESTEROL 134 mg/dL (5-100); TRIGLYCERIDE 132 mg/dL (0-150); UREA NITROGEN BLOOD 12 mg/dL (9-23)
[2024-07-06 15:59] LABS: ALANINE AMINOTRANSFERASE 18 IU/L (10-49); ALBUMIN 4.2 g/dL (3.2-4.8); ASPARTATE AMINOTRANSFERASE 21 IU/L (<34)
[2024-07-06 16:00] LABS: BILIRUBIN TOTAL 0.9 mg/dL (0.1-1.0); CHOLESTEROL 213 mg/dL (<200); HDL CHOLESTEROL 56 mg/dL (>55); PROTEIN TOTAL 7.8 g/dL (6.0-8.3)
[2024-07-06 16:02] LABS: T4 FREE 1.15 ng/dL (0.89-1.76); THYROID STIMULATING HORMONE 2.68 uIU/mL (0.55-4.78)
== END | disposition home or self-care (01) ==
LOC: LAB 15:13
PROVIDERS: ATTEND Internal Medicine Endocrinology, Diabetes & Metabolism
DX: I10 Essential (primary) hypertension (principal); E04.1 Nontoxic single thyroid nodule; E55.9 Vitamin D deficiency, unspecified; R73.9 Hyperglycemia, unspecified; E78.00 Pure hypercholesterolemia, unspecified
CPT/HCPCS: 36415; 80053; 80061; 82306; 83036; 84439; 84443; 84550; 85025

== ENCOUNTER → 2024-10-10 | Outpatient (CLI) | payer BC ==
[2024-10-10 07:24] LABS: BASOPHILS % 0.7 % (0.0-2.0); EOSINOPHILS % 3.1 % (0.0-5.0); HEMATOCRIT. 43.2 % (42.0-52.0); HEMOGLOBIN. 14.7 g/dL (14.0-18.0); LYMPHOCYTES % 32.2 % (20.0-50.0); MEAN PLATELET VOLUME 8.8 fl (7.4-10.4); MONOCYTES % 6.6 % (2.0-8.0); NEUTROPHILS % 57.4 % (40.0-76.0); PLATELET 173 x1000/uL (130-400); RED BLOOD CELL COUNT 4.31 mill/uL (4.7-6.1); RED CELL DISTRIBUTION WIDTH 13.5 % (11.6-14.6)
[2024-10-10 07:45] LABS: CREATININE 1.1 mg/dL (0.6-1.3)
[2024-10-10 07:46] LABS: LDL CHOLESTEROL 159 mg/dL (5-100); TRIGLYCERIDE 238 mg/dL (0-150); UREA NITROGEN BLOOD 12 mg/dL (9-23)
[2024-10-10 07:47] LABS: ASPARTATE AMINOTRANSFERASE 29 IU/L (<34)
[2024-10-10 07:48] LABS: BILIRUBIN TOTAL 0.8 mg/dL (0.1-1.0); PROTEIN TOTAL 7.4 g/dL (6.0-8.3)
[2024-10-10 07:50] LABS: T4 FREE 1.11 ng/dL (0.89-1.76)
== END | disposition home or self-care (01) ==
LOC: LAB 06:37
PROVIDERS: ATTEND Internal Medicine Endocrinology, Diabetes & Metabolism
DX: I10 Essential (primary) hypertension (principal); E55.9 Vitamin D deficiency, unspecified; E78.00 Pure hypercholesterolemia, unspecified; E04.1 Nontoxic single thyroid nodule
CPT/HCPCS: 36415; 80053; 80061; 82306; 83036; 84439; 84443; 84550; 85025

== ENCOUNTER → 2025-01-03 | Outpatient (CLI) | payer BC ==
[2025-01-03 15:58] LABS: BASOPHILS % 0.4 % (0.0-2.0); EOSINOPHILS % 1.8 % (0.0-5.0); HEMATOCRIT. 40.9 % (42.0-52.0); HEMOGLOBIN. 13.7 g/dL (14.0-18.0); LYMPHOCYTES % 36.7 % (20.0-50.0); MEAN PLATELET VOLUME 9.0 fl (7.4-10.4); MONOCYTES % 5.6 % (2.0-8.0); NEUTROPHILS % 55.5 % (40.0-76.0); PLATELET 194 x1000/uL (130-400); RED BLOOD CELL COUNT 4.10 mill/uL (4.7-6.1); RED CELL DISTRIBUTION WIDTH 13.4 % (11.6-14.6)
[2025-01-03 16:09] LABS: CREATININE 1.0 mg/dL (0.6-1.3); TRIGLYCERIDE 98 mg/dL (0-150); UREA NITROGEN BLOOD 12 mg/dL (9-23)
[2025-01-03 16:10] LABS: LDL CHOLESTEROL 158 mg/dL (5-100)
[2025-01-03 16:11] LABS: ASPARTATE AMINOTRANSFERASE 23 IU/L (<34)
[2025-01-03 16:12] LABS: BILIRUBIN TOTAL 1.0 mg/dL (0.1-1.0); PROTEIN TOTAL 7.4 g/dL (6.0-8.3)
[2025-01-03 16:14] LABS: T4 FREE 1.09 ng/dL (0.89-1.76)
== END | disposition home or self-care (01) ==
LOC: LAB 15:21
PROVIDERS: ATTEND Internal Medicine Endocrinology, Diabetes & Metabolism
DX: E55.9 Vitamin D deficiency, unspecified (principal); E78.00 Pure hypercholesterolemia, unspecified; R73.9 Hyperglycemia, unspecified
CPT/HCPCS: 36415; 80053; 80061; 82306; 82533; 83036; 84439; 84443; 85025